=== PATIENT | female | born 1990 | race Caucasian/White ===

== ENCOUNTER 2019-12-18 10:16 | Emergency (ER) | payer OTHER ==
[~2019-12-18] VITALS: Ht 167.6 cm; Wt 68.9 kg
[2019-12-18] MEDS ORDERED: DICLOFENAC SODI75 MG PO (11:36)
== END 2019-12-18 11:45 | disposition home or self-care (01) ==
LOC: ER 10:16
DX: S93.401A Sprain of unspecified ligament of right ankle, initial encounter (principal); X50.0XXA Overexertion from strenuous movement or load, initial encounter; Y93.89 Activity, other specified; Y92.89 Other specified places as the place of occurrence of the external cause; Y99.8 Other external cause status